=== PATIENT | male | born 2000 | race Caucasian/White ===

== ENCOUNTER 2023-08-09 19:04 | Emergency (ER) | payer MEDICAID ==
[2023-08-09] MEDS ORDERED: Sodium Chloride 0.9% 10 ML Syringe FLUSH PRN (19:45)
[2023-08-09] MEDS: Sodium Chloride 0.9% 1,000 ML IV SCH (20:02)
[2023-08-09 20:07] LABS: HEMATOCRIT 45.9 % (40.0-54.0); HEMOGLOBIN 15.2 g/dL (13.0-18.0); MEAN CORPUSCULAR HGB CONC 33.1 g/dL (31.0-35.0); MEAN PLATELET VOLUME 10.8 fL (6.0-10.0); RED BLOOD CELL COUNT 5.43 M/uL (4.50-6.50); WHITE BLOOD CELL COUNT,WBC 9.1 K/uL (4.0-11.0)
[2023-08-09] MEDS: Ondansetron 4 MG/2 ML SDV IVPUSH ONE (20:10)
[2023-08-09 20:28] LABS: A/G RATIO 1.3 (0.8-2.0); ANION GAP 10.4 mmol/L (5.0-15.0); BILIRUBIN TOTAL 1.9 mg/dL (0.0-1.0); BUN/CREATININE RATIO 13.9 (6-25); CALCIUM 8.6 mg/dL (8.5-10.1); CARBON DIOXIDE,CO2 29.5 mmol/L (21.0-32.0); CREATININE 1.15 mg/dL (0.70-1.30); EST CRCL DRUG DOSING (CG) 97.79 mL/min; POTASSIUM,K 3.9 mmol/L (3.5-5.1); PROTEIN TOTAL,TP 7.1 g/dL (6.4-8.2)
[2023-08-09] MEDS ORDERED: Ondansetron 4 MG Tab.DIS ONE (21:00)
[2023-08-10] MEDS: Ondansetron 4 MG/2 ML SDV ONE (06:31)
== END 2023-08-09 21:16 | disposition home or self-care (01) ==
LOC: LB.ED 19:04
DX: K52.9 Noninfective gastroenteritis and colitis, unspecified (principal); R11.10 Vomiting, unspecified; Z79.899 Other long term (current) drug therapy; Z91.048 Other nonmedicinal substance allergy status; Z91.013 Allergy to seafood
CPT/HCPCS: 36415; 80053; 83690; 85027; 96361; 96374; 99283; 99284-25; J2405; J7030; Q0162

== ENCOUNTER 2023-09-26 16:44 | Emergency (ER) | payer MEDICAID, OTHER | END 2023-09-26 17:42 | disposition home or self-care (01) | LOC: LB.ED 16:44 | DX: S49.91XA Unspecified injury of right shoulder and upper arm, initial encounter (principal); Z91.018 Allergy to other foods; Z91.013 Allergy to seafood; Z91.048 Other nonmedicinal substance allergy status; X50.0XXA Overexertion from strenuous movement or load, initial encounter; Y99.0 Civilian activity done for income or pay | CPT/HCPCS: 73030-RT; 99283 ==

== ENCOUNTER 2024-06-16 17:27 | Emergency (ER) | payer SELFPAY ==
[2024-06-16] MEDS ORDERED: Sodium Chloride 0.9% 10 ML Syringe FLUSH PRN (17:43)
[2024-06-16] MEDS: Sodium Chloride 0.9% 1,000 ML IV SCH (17:47)
[2024-06-16] MEDS: Ondansetron 4 MG/2 ML SDV IVPUSH ONE (17:53)
[2024-06-16 18:14] LABS: ANION GAP 7.4 mmol/L (5.0-15.0); BASOPHILS ABSOLUTE AUTO 0.05 K/uL (0.02-0.10); BASOPHILS PERCENT AUTO 0.6 % (0.0-0.5); BUN/CREATININE RATIO 18.7 (6-25); CALCIUM 9.1 mg/dL (8.5-10.1); CARBON DIOXIDE,CO2 29.4 mmol/L (21.0-32.0); CREATININE 0.91 mg/dL (0.70-1.30); EOSINOPHILS ABSOLUTE AUTO 0.62 K/uL (0.04-0.40); EOSINOPHILS PERCENT AUTO 6.9 % (1.0-5.0); EST CRCL DRUG DOSING (CG) 125.8 mL/min; HEMATOCRIT 43.3 % (40.0-54.0); HEMOGLOBIN 14.8 g/dL (13.0-18.0); LYMPHOCYTES ABSOLUTE AUTO 2.37 K/uL (1.50-4.00); LYMPHOCYTES PERCENT AUTO 26.5 % (20.0-40.0); MEAN CORPUSCULAR HEMOGLOBIN 28.2 pg (27.0-32.0); MEAN CORPUSCULAR HGB CONC 34.2 g/dL (31.0-35.0); MEAN CORPUSCULAR VOLUME 83 fL (76-96); MEAN PLATELET VOLUME 11.2 fL (6.0-10.0); MONOCYTES ABSOLUTE AUTO 0.89 K/uL (0.20-0.80); MONOCYTES PERCENT AUTO 9.9 % (3.0-10.0); NEUTROPHILS ABSOLUTE AUTO 5.03 K/uL (2.00-7.50); NEUTROPHILS PERCENT AUTO 56.1 % (45.0-70.0); PLATELET COUNT,PLT 183 K/uL (150-400); POTASSIUM,K 3.8 mmol/L (3.5-5.1); RED BLOOD CELL COUNT 5.24 M/uL (4.50-6.50); RED CELL DISTRIBUTION WIDTH 13.6 % (11.0-16.0)
[2024-06-16] MEDS ORDERED: Ondansetron 4 MG Tab.DIS ONE (18:30)
[2024-06-16] MEDS: Bisacodyl 10 MG Supp RECTAL ONE (19:10)
[2024-06-16] MEDS: Magnesium Citrate Solution 296 ML Bottle PO ONE (19:10)
== END 2024-06-16 19:00 | disposition home or self-care (01) ==
LOC: LB.ED 17:27
DX: K59.04 Chronic idiopathic constipation (principal); E86.0 Dehydration; Z91.013 Allergy to seafood; Z91.09 Other allergy status, other than to drugs and biological substances
CPT/HCPCS: 36415; 74019; 80048; 85025; 96361; 96374; 99284-25; A9270-GY; J2405; J7030; Q0162